=== PATIENT | male | born 1975 | race Caucasian/White ===

== ENCOUNTER 2018-10-01 10:38 | Emergency (ER) | payer MEDICAID ==
[~2018-10-01] VITALS: Ht 180.3 cm; Wt 85.5 kg
--- NOTE | 2018-10-01 11:08 | NUR ---
PRESENTS VIA POV FROM [facility] WHERE HE WAS DENIED HIS "PULSE WAS TOO HIGH AND ONE OF HIS LABS WAS TOO LOW." HAS ALSO FELT GENERALLY WEAK FOR "45 DAYS." DENIES MEDICAL HX/ DENIES ETOH/ILLICITS W/ EXCEPTION OF SMOKING MARIJUANA. APPEARS WELL, VSS (HR 80), NO FOCAL DEFICITS
--- NOTE | 2018-10-01 11:18 | NUR ---
WITH FURTHER EVAL PATIENT REPORTS HX OF ANEMIA (SIMILIAR SYMPTOMS) TREATED WITH IRON TABLETS. HAS NOT TAKEN IRON IN "A FEW MONTHS"
--- NOTE | 2018-10-01 11:39 | NUR ---
PIV STARTED FROM WHICH LABS SENT
--- NOTE | 2018-10-01 12:15 | NUR ---
LAB CALLED-[facility] SENT HEMOLYZED. REPEAT VENIPUNCTURE-NEW CBC/CMP SENT
[2018-10-01 12:30] LABS: BASOPHILS # (AUTO) 0.03 x10^3/uL (0-0.1); BASOPHILS % (AUTO) 1 % (0-1); EOSINOPHILS # (AUTO) 0.01 x10^3/uL (0-0.4); EOSINOPHILS % (AUTO) 0 % (1-7); LYMPHOCYTES # (AUTO) 1.18 x10^3/uL (1-3.4); LYMPHOCYTES % (AUTO) 18 % (22-44); MD NO; MEAN CORPUSCULAR HEMOGLOBIN 32.1 pg (27.5-34.5); MEAN CORPUSCULAR HGB CONC 33.2 g/dL (33.2-36.2); MEAN CORPUSCULAR VOLUME 96.6 fL (81-97); MEAN PLATELET VOLUME 7.4 fL (7.4-10.4); MONOCYTES # (AUTO) 0.19 x10^3/uL (0.2-0.8); MONOCYTES % (AUTO) 3 % (2-9); NEUTROPHILS # (AUTO) 5.03 x10^3/uL (1.8-6.8); NEUTROPHILS % (AUTO) 78 % (42-75); PLATELET COUNT 343 x10^3/uL (130-400); RED BLOOD COUNT 4.36 x10^6/uL (4.38-5.82); RED CELL DISTRIBUTION WIDTH 14.1 % (9.4-14.8)
[2018-10-01 12:39] LABS: ALBUMIN 3.7 g/dL (3.4-5.0); ANION GAP 4 mmol/L (5-15); CALCIUM 8.6 mg/dL (8.5-10.1); CHLORIDE 109 mmol/L (98-107)
[2018-10-01 12:41] LABS: ALANINE AMINOTRANSFERASE 25 U/L (12-78); ALKALINE PHOSPHATASE 77 U/L (45-117); CREATININE 1.01 mg/dL (0.7-1.3); TOTAL PROTEIN 6.8 g/dL (6.4-8.2)
[2018-10-01 13:20] VITALS: BP 111/61
--- NOTE | 2018-10-01 13:21 | NUR ---
PATIENT TOLERATING PO SOLIDS/FLUIDS AMBULATED TO RESTROOM W/ NO DIFFICULTY. REPORTS "MAYBE I FEEL A LITTLE BETTER AFTER EATING, BUT NOT TOO MUCH." VSS PUT UP FOR CHECK TESTING RESULTED
--- NOTE | 2018-10-01 13:33 | NUR ---
SPOKE TO PROVIDER IN R/T TO DISPO PLAN-MD TO REVIEW SHORTLY
--- NOTE | 2018-10-01 13:56 | NUR ---
PER PROVIDER REQUEST-MEDICAL RECORDS (INCLUDING PATIENT SIGNED AUTHORIZED RELEASE OF INFO) FAXED TO [email or web address]
== END 2018-10-01 14:00 | disposition home or self-care (01) ==
LOC: ED 13:44
DX: R53.1 Weakness (principal); R53.83 Other fatigue; F17.200 Nicotine dependence, unspecified, uncomplicated
CPT/HCPCS: 36415; 80053; 85025; 93005; 99284